=== PATIENT | female | born 1965 ===

== ENCOUNTER 2023-05-06 09:38 | Outpatient (CLI) | payer OTHER ==
[2023-05-06 10:34] LABS: PH,URINE 5.5 (5.0-8.0); URINE APPEARANCE Clear; URINE BILIRRUBIN Negative (NEGATIVE); URINE BLOOD Negative; URINE COLOR Yellow; URINE GLUCOSE Negative (NEGATIVE); URINE LEUKOCYTE Negative; URINE NITRATE Negative; URINE PROTEIN Negative (NEGATIVE); URINE UROBILINOGEN 0.2 E.U./dl
[2023-05-06] MEDS ORDERED: APRODINE TABLE1 EACH (10:34)
[2023-05-06 10:36] LABS: HEMATOCRIT 43.9 % (36.0-45.00); HEMOGLOBIN 14.9 g/dL (12.0-15.00); MEAN CELL VOLUME 90.3 fL (80.00-100.00); MEAN CORPUSCULAR HEMOGLOBIN 30.7 pg (27.00-32.0); PLATELET COUNT 259 K/uL (150-450); RED BLOOD COUNT 4.86 M/uL (4.00-6.00); RED CELL DISTRIBUTION WIDTH 13.8 % (11.5-14.5)
[2023-05-06 10:38] LABS: URINE BACTERIA 22.6 uL (0.0-1933); URINE EPITHELIAL CELLS 2.3 uL (0.0-38.8); URINE RBC 3.5 uL (0.0-20.8)
[2023-05-06 10:44] LABS: URINE WBC 0.9 uL (0.0-23.2)
[2023-05-06] MEDS ORDERED: SYNTHROID175 MCG PO (10:47)
[2023-05-06 11:05] LABS: INR 0.95; PARTIAL THROMBOPLASTIN TIME 28.7 SECONDS (22.0-34.0)
[2023-05-06 11:20] LABS: ALBUMIN 3.7 gm/dL (3.4-5.0); BILIRUBIN TOTAL 0.62 mg/dL (0.3-1.2); CALCIUM 9.4 mg/dL (8.5-10.1); CREATININE SERUM 0.56 mg/dL (0.55-1.02); GFR 110.42; POTASSIUM 4.73 mEq/L (3.5-5.1); TOTAL PROTEIN 7.7 gm/dL (6.4-8.2)
== END 2023-05-06 15:03 | disposition home or self-care (01) ==
LOC: LAB 09:38
PROVIDERS: ATTEND Orthopaedic Surgery Hand Surgery
DX: E11.9 Type 2 diabetes mellitus without complications (principal); E78.00 Pure hypercholesterolemia, unspecified; E78.3 Hyperchylomicronemia; D65 Disseminated intravascular coagulation [defibrination syndrome]; D66 Hereditary factor VIII deficiency; N39.0 Urinary tract infection, site not specified

== ENCOUNTER 2023-05-11 06:46 | Day surgery (SDC) | payer OTHER ==
[~2023-05-11 06:46] MED LIST: APRODINE TABLE1 EACH; SYNTHROID175 MCG PO
== END 2023-05-11 13:35 | disposition home or self-care (01) ==
LOC: CIR.AMB 06:46
PROVIDERS: ATTEND Orthopaedic Surgery Hand Surgery
DX: D21.12 Benign neoplasm of connective and other soft tissue of left upper limb, including shoulder (principal); R22.32 Localized swelling, mass and lump, left upper limb; I10 Essential (primary) hypertension; Z20.822 Contact with and (suspected) exposure to COVID-19; E03.9 Hypothyroidism, unspecified